=== PATIENT | male | born 1975 | race Caucasian/White ===

== ENCOUNTER 2017-02-02 21:53 | Emergency (ER) | payer MEDICAID | END 2017-02-02 23:30 | disposition home or self-care (01) | LOC: D.ER 21:53 | DX: F41.9 Anxiety disorder, unspecified (principal); F43.23 Adjustment disorder with mixed anxiety and depressed mood; K21.9 Gastro-esophageal reflux disease without esophagitis ==

== ENCOUNTER 2017-03-01 14:17 | Emergency (ER) | payer MEDICAID | END 2017-03-01 16:48 | disposition home or self-care (01) | LOC: D.ER 14:17 | DX: F41.9 Anxiety disorder, unspecified (principal); F43.10 Post-traumatic stress disorder, unspecified ==

== ENCOUNTER 2017-03-03 18:31 | Emergency (ER) | payer MEDICAID ==
[2017-03-03 19:21] LABS: UDS - AMPHET NEGATIVE QUAL (NEGATIVE); UDS - BARB NEGATIVE QUAL (NEGATIVE); UDS - BENZO POSITIVE QUAL (NEGATIVE); UDS - COCAINE NEGATIVE QUAL (NEGATIVE); UDS - METH NEGATIVE QUAL (NEGATIVE); UDS - OPIATE NEGATIVE QUAL (NEGATIVE); UDS - PCP NEGATIVE QUAL (NEGATIVE); UDS - THC POSITIVE QUAL (NEGATIVE)
[2017-03-03 19:33] LABS: BASOPHILS 0.2 % (0-2); EOSINOPHILS 1.6 % (0-7); HEMATOCRIT 45.8 % (42.0-54.0); IMMATURE GRANULOCYTES 0.2 % (0-5); LYMPHOCYTES 30.9 % (15-50); MCH 32.7 pg (26.0-34.0); MCHC 34.9 g/dL (31.0-37.0); MCV 93.7 fL (80.0-100.0); MEAN PLATELET VOLUME 10.1 fL (7.4-10.4); NEUTROPHILS 61.1 % (40-80); PLATELET COUNT 254 10x3/uL (130-400); RBC 4.89 10x6/uL (4.20-6.10); RDW 12.9 % (11.5-14.5); WBC 10.7 10x3/uL (4.8-10.8)
[2017-03-03 19:35] LABS: APPEARANCE CLEAR (CLEAR); BILIRUBIN NEGATIVE (NEGATIVE); COLOR YELLOW (YELLOW); GLUCOSE NEGATIVE (NEGATIVE); KETONE NEGATIVE (NEGATIVE); LEUKOCYTE ESTERASE TRACE (NEGATIVE); NITRITE NEGATIVE (NEGATIVE); PROTEIN TRACE mg/dL (NEGATIVE); SPECIFIC GRAVITY 1.015 (1.005-1.020); UROBILINOGEN NORMAL (NORMAL)
[2017-03-03 19:40] LABS: BACTERIA FEW /hpf (NONE SEEN); EPITHELIAL CELLS 0-5 /hpf (0-5); RED CELLS - URINE 0-5 /hpf (0-5); WHITE CELLS - URINE 0-5 /hpf (0-5)
[2017-03-03 19:53] LABS: ALBUMIN 3.9 g/dL (3.4-5.0); ALKALINE PHOSPHATASE 77 U/L (46-116); ALT (SGPT) 35 U/L (10-68); BILIRUBIN - TOTAL 0.29 mg/dL (0.2-1.3); CALC OSMOLALITY 276 mosm/kg (275-300); CARBON DIOXIDE 27.6 mmol/L (21.0-32.0); CHLORIDE - SERUM 103 mmol/L (98-107); CREATININE - SERUM 0.9 mg/dL (0.6-1.3); GLUCOSE 101 mg/dL (74-106); POTASSIUM - SERUM 3.7 mmol/L (3.5-5.1); PROTEIN - SERUM 7.7 g/dL (6.4-8.2); SODIUM 140 mmol/L (136-145); UREA NITROGEN 8 mg/dL (7-18); eGFR NON AFRICAN AMERICAN > 90 mL/min (90-120)
== END 2017-03-03 21:00 | disposition home or self-care (01) ==
LOC: D.ER 18:31
PROVIDERS: Emergency Medicine; Nurse Practitioner Acute Care
DX: F12.10 Cannabis abuse, uncomplicated (principal); F13.10 Sedative, hypnotic or anxiolytic abuse, uncomplicated; F41.0 Panic disorder [episodic paroxysmal anxiety]; F17.200 Nicotine dependence, unspecified, uncomplicated; F43.23 Adjustment disorder with mixed anxiety and depressed mood; F43.10 Post-traumatic stress disorder, unspecified; K21.9 Gastro-esophageal reflux disease without esophagitis

== ENCOUNTER 2017-03-04 01:38 | Emergency (ER) | payer MEDICAID ==
[2017-03-04 03:11] LABS: BASOPHILS 0.3 % (0-2); EOSINOPHILS 1.5 % (0-7); HEMATOCRIT 44.5 % (42.0-54.0); HEMOGLOBIN 15.5 g/dL (13.5-17.5); IMMATURE GRANULOCYTES 0.2 % (0-5); LYMPHOCYTES 31.1 % (15-50); MCH 32.6 pg (26.0-34.0); MCHC 34.8 g/dL (31.0-37.0); MCV 93.5 fL (80.0-100.0); MEAN PLATELET VOLUME 10.6 fL (7.4-10.4); MONOCYTES 6.4 % (2-11); NEUTROPHILS 60.5 % (40-80); PLATELET COUNT 264 10x3/uL (130-400); RBC 4.76 10x6/uL (4.20-6.10); RDW 12.9 % (11.5-14.5); WBC 12.8 10x3/uL (4.8-10.8)
[2017-03-04 03:19] LABS: CALC OSMOLALITY 280 mosm/kg (275-300); CALCIUM 9.1 mg/dL (8.5-10.1); CARBON DIOXIDE 26.2 mmol/L (21.0-32.0); CHLORIDE - SERUM 103 mmol/L (98-107); CREATININE - SERUM 1.1 mg/dL (0.6-1.3); GLUCOSE 114 mg/dL (74-106); POTASSIUM - SERUM 3.3 mmol/L (3.5-5.1); SODIUM 141 mmol/L (136-145); UREA NITROGEN 9 mg/dL (7-18); eGFR NON AFRICAN AMERICAN 79 mL/min (90-120)
[2017-03-04 04:40] LABS: APPEARANCE CLEAR (CLEAR); BILIRUBIN NEGATIVE (NEGATIVE); COLOR YELLOW (YELLOW); GLUCOSE NEGATIVE (NEGATIVE); KETONE NEGATIVE (NEGATIVE); LEUKOCYTE ESTERASE NEGATIVE (NEGATIVE); NITRITE NEGATIVE (NEGATIVE); PH 5.5 (5.0-6.0); PROTEIN NEGATIVE (NEGATIVE); UROBILINOGEN NORMAL (NORMAL)
[2017-03-04 04:43] LABS: UDS - AMPHET NEGATIVE QUAL (NEGATIVE); UDS - BARB NEGATIVE QUAL (NEGATIVE); UDS - BENZO POSITIVE QUAL (NEGATIVE); UDS - COCAINE NEGATIVE QUAL (NEGATIVE); UDS - METH NEGATIVE QUAL (NEGATIVE); UDS - OPIATE NEGATIVE QUAL (NEGATIVE); UDS - PCP NEGATIVE QUAL (NEGATIVE); UDS - THC POSITIVE QUAL (NEGATIVE)
== END 2017-03-04 13:02 | disposition home or self-care (01) ==
LOC: D.ER 01:38
PROVIDERS: Family Medicine
DX: F41.9 Anxiety disorder, unspecified (principal); F12.10 Cannabis abuse, uncomplicated; F43.23 Adjustment disorder with mixed anxiety and depressed mood; F41.0 Panic disorder [episodic paroxysmal anxiety]; F43.10 Post-traumatic stress disorder, unspecified

== ENCOUNTER 2017-03-15 09:11 | Emergency (ER) | payer MEDICAID ==
[2017-03-17 17:11] VITALS: BMI 33.7
== END 2017-03-15 10:48 | disposition home or self-care (01) ==
LOC: D.ER 09:11
DX: F41.9 Anxiety disorder, unspecified (principal); D21.9 Benign neoplasm of connective and other soft tissue, unspecified; F19.10 Other psychoactive substance abuse, uncomplicated

== ENCOUNTER → 2017-03-15 | Emergency (ER) | payer MEDICAID ==
[~2017-03-15] MED LIST: INDERAL10 MG PO; PAXIL20 MG PO; XANAX2 MG PO
[2017-03-17 17:11] VITALS: BMI 33.7
== END | disposition left against medical advice (07) ==
LOC: D.ER 13:50
DX: F41.9 Anxiety disorder, unspecified (principal)

== ENCOUNTER 2017-03-16 08:26 | Emergency (ER) | payer MEDICAID ==
[2017-03-17] MEDS ORDERED: INDERAL10 MG PO (14:39)
[2017-03-17] MEDS ORDERED: PAXIL20 MG PO (14:40)
[2017-03-17] MEDS ORDERED: XANAX2 MG PO (14:40)
[2017-03-17 17:11] VITALS: BMI 33.7
== END 2017-03-16 11:17 | disposition home or self-care (01) ==
LOC: D.ER 08:26
DX: F41.9 Anxiety disorder, unspecified (principal)

== ENCOUNTER 2017-03-17 06:48 | Observation (INO) | payer MEDICAID ==
[~2017-03-17] VITALS: Ht 188 cm; Wt 119.3 kg
[2017-03-17 07:32] LABS: BASOPHILS 0.2 % (0-2); EOSINOPHILS 1.9 % (0-7); HEMATOCRIT 47.3 % (42.0-54.0); HEMOGLOBIN 16.5 g/dL (13.5-17.5); IMMATURE GRANULOCYTES 0.2 % (0-5); LYMPHOCYTES 23.2 % (15-50); MCH 32.7 pg (26.0-34.0); MCHC 34.9 g/dL (31.0-37.0); MCV 93.8 fL (80.0-100.0); MEAN PLATELET VOLUME 10.5 fL (7.4-10.4); MONOCYTES 8.5 % (2-11); PLATELET COUNT 233 10x3/uL (130-400); RBC 5.04 10x6/uL (4.20-6.10); RDW 13.1 % (11.5-14.5); WBC 11.4 10x3/uL (4.8-10.8)
[2017-03-17 07:46] LABS: ALBUMIN 4.1 g/dL (3.4-5.0); ALKALINE PHOSPHATASE 74 U/L (46-116); ALT (SGPT) 31 U/L (10-68); BILIRUBIN - TOTAL 1.09 mg/dL (0.2-1.3); CALC OSMOLALITY 276 mosm/kg (275-300); CALCIUM 9.3 mg/dL (8.5-10.1); CARBON DIOXIDE 23.3 mmol/L (21.0-32.0); CHLORIDE - SERUM 102 mmol/L (98-107); CREATININE - SERUM 1.1 mg/dL (0.6-1.3); GLUCOSE 112 mg/dL (74-106); POTASSIUM - SERUM 3.7 mmol/L (3.5-5.1); PROTEIN - SERUM 8.2 g/dL (6.4-8.2); SODIUM 138 mmol/L (136-145); UREA NITROGEN 13 mg/dL (7-18); eGFR NON AFRICAN AMERICAN 79 mL/min (90-120)
[2017-03-17 08:06] LABS: CKMB 1.1 U/L (0.0-3.6); CREATINE KINASE 263 UL (21-232); TROPONIN-I < 0.017 ng/mL (0.000-0.060)
[2017-03-17 09:44] LABS: APPEARANCE HAZY (CLEAR); BACTERIA FEW /hpf (NONE SEEN); BILIRUBIN NEGATIVE (NEGATIVE); COLOR DK YELLOW (YELLOW); GLUCOSE NEGATIVE (NEGATIVE); KETONE MODERATE mg/dL (NEGATIVE); LEUKOCYTE ESTERASE TRACE (NEGATIVE); MUCUS >1+ /lpf (NONE SEEN); NITRITE NEGATIVE (NEGATIVE); PROTEIN NEGATIVE (NEGATIVE); RED CELLS - URINE 0-5 /hpf (0-5); UROBILINOGEN NORMAL (NORMAL); WHITE CELLS - URINE 0-5 /hpf (0-5)
[2017-03-17 09:46] LABS: UDS - AMPHET POSITIVE QUAL (NEGATIVE); UDS - BARB NEGATIVE QUAL (NEGATIVE); UDS - BENZO POSITIVE QUAL (NEGATIVE); UDS - COCAINE NEGATIVE QUAL (NEGATIVE); UDS - METH NEGATIVE QUAL (NEGATIVE); UDS - OPIATE POSITIVE QUAL (NEGATIVE); UDS - PCP NEGATIVE QUAL (NEGATIVE); UDS - THC POSITIVE QUAL (NEGATIVE)
--- NOTE | 2017-03-17 14:29 | NUR ---
ARRIVE TO ROOM VIA WHEELCHAIR FROM ER. ALERT AND ORIENTED X4. EXPRESSES FEELING ANXIOUS. RT HAND IV SL. WANTING TO GO HOME. PATIENT STATES, "THE ATIVAN YAL ARE GIVING ME DOESN'T WORK, I CAN TAKE MORE AT HOME TO MAKE ME FEEL BETTER." CONTINUE ADMISSION PROCESS. UP AD SHELLI. REFUSE SCDs. BED LOCKED AND LOW. CALL LIGHT IN REACH. ONE SIDERIAL UP PER PATIENT REQUEST.
[2017-03-17] MEDS ORDERED: INDERAL10 MG PO (14:39)
[2017-03-17] MEDS ORDERED: PAXIL20 MG PO (14:40)
[2017-03-17] MEDS ORDERED: XANAX2 MG PO (14:40)
[2017-03-17 17:11] VITALS: BP 165/94; Ht 188 cm; Wt 119.3 kg
--- NOTE | 2017-03-17 18:06 | NUR ---
ALERT AND ORIENTED X4. ORTHOSTATIC BP COMPLETE. LYING-165/94, P-77, SITTING BP-168/85, P-75. STANDING BP-145/78, P-78. CONTINUE PLAN OF CARE. DENIES ANY NEEDS. BED LOCKED AND LOW. CALL LIGHT IN REACH. SECURITY CODE ON CHART. CONTINUE SAFETY PRECAUTIONS. SINUS RHTHYM ON TELEMETRY.
--- NOTE | 2017-03-17 18:29 | NUR ---
DEMANDED TO GO OUTSIDE TO SMOKE. [employer] PROGRAM COORDINATOR EXPLAINED IT BEING A LIBILITY ISSUE. REFUSE TO STAY. DC RT HAND IV TIP INTACT. OFFER NICOTINE PATCH. REFUSES PATCH. SIGNS AMA FORM. DR. STAPLETON PAGED.
== END 2017-03-17 18:45 | disposition left against medical advice (07) ==
LOC: D.ER 06:48 → D.M2 12:34 → OBSVTIME 12:35 → D.M2 18:45
PROVIDERS: Emergency Medicine; Family Medicine; ADMIT Family Medicine
DX: R55 Syncope and collapse (principal); F41.9 Anxiety disorder, unspecified